=== PATIENT | female | born 1970 | race Caucasian/White ===

== ENCOUNTER 2017-06-05 06:32 | Day surgery (SDC) | payer OTHER ==
[2017-06-04 13:23] VITALS: BMI 37.1
--- NOTE | 2017-06-04 18:59 | HP ---
DATE OF ADMISSION: 06/05/2017 HISTORY OF PRESENT ILLNESS: This is a 47-year-old female, who comes for colonoscopy, because of hist ory of hematochezia. The bleeding is painless. There is no history of abdominal pain or discomfort. The patient comes for colonoscopy with history of rectal bleeding. ALLERGIES: 1. ULTRAM. 2. NABUMETONE. SOCIAL HISTORY: She is a former smoker. Does not drink alcohol. MEDICAL ILLNESSES: 1. Hypertension. 2. Diabetes mellitus. 3. Hyperlipidemia. 4. Hypothyroidism. 5. Asthma. 6. History of pulmonary stenosis, childhood surgery. 7. Umbilical hernia repair. PHYSICAL EXAMINATION: VITAL SIGNS: Pulse is 70, blood pressure 130/80. HEENT: Conjunctivae clear. CARDIOVASCULAR SYSTEM AND LUNGS: Within normal limits. ABDOMEN: Soft to palpate. No organomegaly. No tenderness. No masses. ADMITTING DIAGNOSIS: Rectal bleeding. PLAN: Colonoscopy.
--- NOTE | 2017-06-05 10:12 | OP ---
DATE OF PROCEDURE: 06/05/2017 PREOPERATIVE DIAGNOSIS: A 47-year-old female with hematochezia, underwent colonoscopy. POSTOPERATIVE DIAGNOSES: 1. Sessile polyps x2, rectum. 2. Hypertrophied anal papilla, hemorrhoids. 3. Mild, early sigmoid diverticular disease. OPERATIVE PROCEDURE: Colonoscopy with polypectomy. DESCRIPTION OF PROCEDURE: The patient was placed on her left lateral position and was given sedation by Anesthesia Department. A rectal exam was done before the scope was advanced into the rectum. No lesion felt on rectal exam. A [employer] video colonoscope was introduced into the rectum and advanced all the way into the cecum. The prep was very good. The mucosa appears normal. The appendical orif ice and ileocecal valve, cecum, no pathology seen. The ascending colon, hepatic flexure, transverse colon, splenic flexure, and descending colon, no pathology seen. The sigmoid colon showed very mild, early diverticular disease. Rectum showed 2 sessile polyps. Both removed with snare cautery with g ood hemostasis. Retroflexion of scope in the rectum showed hypertrophied anal papilla, hemorrhoids. DISCHARGE PLANNING: A 47-year-old female who came for colonoscopy with hematochezia. The colonoscopy showed 2 sessile rectal polyps. Both were removed. She also had hemorrhoids. DISCHARGE RECOMMENDATIONS: 1. The patient was advised to call me if she developed abdominal pain, hematochezia. 2. To come back to clinic in 2 weeks. 3. Repeat colonoscopy in 5 years.
[2017-06-05] MEDS ORDERED: PROPOFOL 200 MG/20 ML VIAL ONE (12:05)
[2017-06-05] MEDS ORDERED: Lidocaine 1% PF 5 ML VIAL ONE (12:05)
== END 2017-06-05 09:35 | disposition home or self-care (01) ==
LOC: SDC 06:32
PROVIDERS: ATTEND Internal Medicine Gastroenterology
PROC: 0DBP8ZX Excision of Rectum, Via Natural or Artificial Opening Endoscopic, Diagnostic (ICD-10-PCS; principal; 2017-06-05)
DX: K92.1 Melena (principal); K63.5 Polyp of colon; K62.89 Other specified diseases of anus and rectum; K64.9 Unspecified hemorrhoids; K57.30 Diverticulosis of large intestine without perforation or abscess without bleeding; I10 Essential (primary) hypertension; E11.9 Type 2 diabetes mellitus without complications; E78.5 Hyperlipidemia, unspecified; E03.9 Hypothyroidism, unspecified; J45.909 Unspecified asthma, uncomplicated; E66.9 Obesity, unspecified; Z68.37 Body mass index [BMI] 37.0-37.9, adult; Z79.84 Long term (current) use of oral hypoglycemic drugs; Z79.899 Other long term (current) drug therapy; Z88.5 Allergy status to narcotic agent; Z88.6 Allergy status to analgesic agent; Z87.891 Personal history of nicotine dependence
CPT/HCPCS: 88305